=== PATIENT | female | born 1975 | race Caucasian/White ===

== ENCOUNTER 2016-04-15 11:24 | Emergency (ER) | payer OTHER ==
[2016-04-15 11:46] VITALS: BP 121/83; PULSE 90; TEMP 98.2; BMI 20.7
[2016-04-15] MEDS ORDERED: IBUPROFEN 600 MG TABLET (FP) PO ONE ×2 (13:51→13:54)
[2016-04-15] MEDS ORDERED: ALBUTEROL SO4 0.083% IH SOL 2.5 MG/3 ML VIAL.NEB. NEB ONE ×2 (14:00→14:10)
--- NOTE | 2016-04-15 14:00 | PDOC ---
History of Present Illness - General Chief Complaint: Cold Symptoms Stated Complaint: PAIN/ EYE, THROAT, HEAD Time Seen by Provider: 04/15/16 13:44 History Source: Patient Exam Limitations: No Limitations - History of Present Illness Initial Comments: 04/15/16 14:00 40 yr female with sore throat, nasal congestion, clogged ears and cough. 04/15/16 14:01 Severity: reports: mild Past History - Past Medical History Allergies/Adverse Reactions: Allergies Allergy/AdvReac Type Severity Reaction Status Date / Time amoxicillin Allergy Mild Swelling Verified 04/15/16 11:42 red peppers Allergy Mild Uncoded 04/15/16 11:42 Home Medications: Ambulatory Orders Benzonatate [Tessalon Pearls -] 100 mg PO TID PRN #21 capsule 04/15/16 Fluticasone Prop 0.05% Nasal [Flonase -] 1 - 2 spray NS DAILY #1 spray.pump Other medical history: none - Family Disease History Comment:: 04/15/16 14:01 none - Immunization History Immunization Up to Date: No - Psycho/Social/Smoking Cessation Hx Anxiety: No Suicidal Ideation: No Smoking Status: No Smoking History: Never smoked Have you smoked in the past 12 months: No Number of Cigarettes Smoked Daily: 0 Information on smoking cessation initiated: No Hx Alcohol Use: No Drug/Substance Use Hx: No Substance Use Type: None Respiratory Specific PMHX - Complaint Specific PMHX Angina: No Bronchitis: Yes Review of Systems - Review of Systems Able to Perform ROS?: Yes Is the patient limited Mohawk proficient: No Constitutional: No: Symptoms Reported HEENTM: Yes: See HPI Respiratory: Yes: See HPI *Physical Exam - Vital Signs Last Vital Signs Temp Pulse Resp BP Pulse Ox 98.2 F 90 18 121/83 100 04/15/16 11:43 04/15/16 11:43 04/15/16 11:43 04/15/16 11:43 04/15/16 11:43 - Physical Exam General Appearance: Yes: Nourished, Appropriately Dressed HEENT: positive: EOMI, EL, TMs Normal, Pharynx Normal, Nasal Congestion Neck: positive: Supple. negative: Lymphadenopathy (R), Lymphadenopathy (L) Respiratory/Chest: positive: Lungs Clear, Normal Breath Sounds Cardiovascular: positive: Regular Rhythm, Regular Rate Gastrointestinal/Abdominal: positive: Normal Bowel Sounds, Soft Musculoskeletal: positive: Normal Inspection Extremity: positive: Normal Capillary Refill, Normal Inspection, Normal Range of Motion Integumentary: positive: Normal Color, Dry, Warm Neurologic: positive: Fully Oriented, Alert, Normal Mood/Affect, Normal Response , Motor Strength /5 Medical Decision Making - Medical Decision Making 04/15/16 14:02 cc: cough, nasal congestion afebrile non toxic well appearing will give duoneb, swab for strep *DC/Admit/Observation/Transfer Diagnosis at time of Disposition: Sinusitis Qualifiers: Sinusitis location: frontal Chronicity: acute Recurrence: non-recurrent Qualified Code(s): J01.10 - Acute frontal sinusitis, unspecified - Discharge Dispostion Disposition: HOME Condition at time of disposition: Good - Prescriptions Prescriptions: Fluticasone Prop 0.05% Nasal [Flonase -] 1 - 2 spray NS DAILY #1 spray.pump Benzonatate [Tessalon Pearls -] 100 mg PO TID PRN #21 capsule PRN Reason: Cough - Referrals Referrals: Nika Reagan MD [Primary Care Provider] - Hermann Sharma MD [Staff Physician] - - Patient Instructions Additional Instructions: drink plenaty of water use the flonase nasal spray as directed take tessalon for cough you can slo try claritin D for sinus congestion, allergy symptoms follow with ENT this week for follow up if not improving return if any worsening symptoms
== END 2016-04-15 15:01 | disposition home or self-care (01) ==
LOC: JERFT 11:24
PROC: 3E0F7GC Introduction of Other Therapeutic Substance into Respiratory Tract, Via Natural or Artificial Opening (ICD-10-PCS; principal; 2016-04-15)
DX: J01.10 Acute frontal sinusitis, unspecified (principal)
CPT/HCPCS: 87070; 87430; 94640; 99281-25